=== PATIENT | female | born 1960 | race Caucasian/White ===

== ENCOUNTER → 2017-02-15 | Outpatient (CLI) | payer OTHER | LOC: FIMAGING 13:38 | DX: Z12.31 Encounter for screening mammogram for malignant neoplasm of breast (principal) | CPT/HCPCS: G0202 ==

== ENCOUNTER 2017-12-31 08:30 | Emergency (ER) | payer OTHER ==
[2017-12-31 08:45] VITALS: BP 108/73; PULSE 71; RESP 17; TEMP 98.1; O2SAT 95
--- NOTE | 2017-12-31 09:01 | EDPHY ---
H & P Smoking Status: Never smoked Time Seen by Provider: 12/31/17 08:45 HPI/ROS: CHIEF COMPLAINT: Left knee pain HISTORY OF PRESENT ILLNESS: 57-year-old female states that she was climbing on the bed last evening, torqued her left knee and felt immediate pain to her left medial knee. She is now unable to fully extend. Position of comfort is flexed at approximately 60 degrees. No direct trauma or fall. No proximal distal pain or injury. No paresthesia. She does note prior history of MCL injury to this knee without surgical intervention. PHYSICAL EXAM (Prior to examination, patient consented to physical exam, hands were washed and my usual and customary physical exam procedures followed) 1) GENERAL: Well-developed, well-nourished, alert and oriented. Appears to be in no acute distress. 2) HEAD: Normocephalic 3) HEENT: Pupils equal, round, reactive to light bilaterally. 4) LUNGS: Breathing comfortably. 5) MUSCULOSKELETAL: Exam of the left knee shows soft tissue swelling, tender to palpation medial aspect of knee. Unable to fully extend secondary to pain. No gross instability. Proximally distally nontender. Compartments are soft. 6) SKIN: Intact 7) VASCULAR: DP,PT pulses and cap refill present and brisk distally DIFFERENTIAL DIAGNOSIS: in no particular order including but not limited to fracture, sprain, compartment syndrome, septic arthritis, DVT Procedure: Crutches indications for crutch use discussed with patient. Patient fitted for crutches by ER staff. Observed ambulating with crutches. I think the patient has the capacity to safely use crutches. Usual and customary crutch walking precautions provided Procedure: Splint Franko wrap splint was applied by ER telecommunication tower technician. With initially discussed a knee immobilizer however she is unable to extend without significant pain. After application of the splint I returned and re-examined the patient. The splint was adequately immobilizing the joint and distal to the splint the patient's circulation and sensation were intact. Patient shows no signs of compartment syndrome. Was given orthopedic precautions. MEDICAL DECISION MAKING Serial evaluations performed on patient. I discussed the limitations of x-ray in diagnosis of knee pain and injury. At this time I do not think that emergent MRI is currently indicated. However, I have recommended follow-up with Orthopedic surgery and provided this referral information. Informed the patient that outpatient MRI may be indicated. Doubt septic arthritis. Doubt compartment syndrome. Doubt DVT. She has been given orthopedic follow-up information with on-call orthopedics Dr. Tomasz Alexandra. She feels comfortable being discharged. Usual and customary orthopedic precautions instructions provided. Care of patient under supervision of primary Supervising physician Dr Scott. (Reanna,Dianne Genny) Constitutional: Initial Vital Signs Temperature (C) 36.7 C 12/31/17 08:41 Heart Rate 71 12/31/17 08:41 Respiratory Rate 17 12/31/17 08:41 Blood Pressure 108/73 12/31/17 08:41 O2 Sat (%) 95 12/31/17 08:41 O2 Delivery Mode Room Air Allergies/Adverse Reactions: No Known Allergies Allergy (Unverified 12/31/17 08:41) Home Medications: Medication Instructions Recorded Hydrocodone/APAP 5/325 [[place] 1 tab PO Q6 PRN #7 tab 12/31/17 5/325 (RX)] MDM/Departure - MDM ED Course/Re-evaluation: PHYSICIAN DOCUMENTATION: The patient was evaluated and managed by the Physician Boiler Tender. My co- signature indicates that I have reviewed this chart and I agree with the findings and plan of care as documented. I am the secondary supervising physician. (Enrique Scott) - Depart Disposition: Home, Routine, Self-Care Clinical Impression: Left knee sprain Qualifiers: Encounter type: initial encounter Involved ligament of knee: other ligament Qualified Code(s): S83.8X2A - Sprain of other specified parts of left knee, initial encounter Condition: Good Instructions: Hydrocodone/Acetaminophen (By mouth), Knee Sprain (ED) Additional Instructions: Return to the ER immediately if you experience discoloration, have worsening pain, numbness, tingling, or any other symptoms that concern you. If you received x-rays in the emergency department today, be advised, that ligamentous , tendon, muscular, and other non-bony injury cannot be fully ruled out. Try to keep your affected extremity elevated above the level of your chest, and keep cold packs on the affected area, for the next 48 hours. Prescriptions: Hydrocodone/APAP 5/325 [[place] 5/325 (RX)] 1 tab PO Q6 PRN #7 tab PRN Reason: Pain, Severe Referrals: Tahir Alexandra MD [Medical Doctor] - 2-3 days, call for appt.
== END 2017-12-31 09:25 | disposition home or self-care (01) ==
DX: S83.8X2A Sprain of other specified parts of left knee, initial encounter (principal); X50.9XXA Other and unspecified overexertion or strenuous movements or postures, initial encounter; Y93.39 Activity, other involving climbing, rappelling and jumping off

== ENCOUNTER → 2018-02-22 | Outpatient (CLI) | payer OTHER | LOC: FIMAGING 10:16 | PROVIDERS: ATTEND Internal Medicine | DX: Z12.31 Encounter for screening mammogram for malignant neoplasm of breast (principal) ==

== ENCOUNTER → 2019-02-25 | Outpatient (CLI) | payer OTHER | LOC: FIMAGING 15:47 | PROVIDERS: ATTEND Internal Medicine | DX: Z12.31 Encounter for screening mammogram for malignant neoplasm of breast (principal) ==